=== PATIENT | male | born 1990 | race Two or more races ===

== ENCOUNTER 2022-02-14 16:03 | Emergency (ER) | payer MEDICAID, OTHER ==
[~2022-02-14] VITALS: Ht 160 cm; Wt 63.6 kg
[2022-02-14 16:05] VITALS: BP 122/74
== END 2022-02-14 17:46 | disposition home or self-care (01) ==
LOC: EDBD 16:03 → ER 16:03
DX: Z00.00 Encounter for general adult medical examination without abnormal findings (principal); F32.9 Major depressive disorder, single episode, unspecified; F20.9 Schizophrenia, unspecified; F12.10 Cannabis abuse, uncomplicated; Z59.00 Homelessness unspecified